=== PATIENT | female | born 1995 | race Caucasian/White ===

== ENCOUNTER → 2017-04-08 | Outpatient (CLI) | payer OTHER ==
[~2017-04-08] MED LIST: PRENATAL VITAMI1 TA9 PO; PRENATAL1 TA1 PO; PRILOSEC20 MG PO; VICODIN 5/500 505 MG PO; ZANTAC150 MG PO
== END | disposition home or self-care (01) ==
LOC: US 17:45
DX: Z97.5 Presence of (intrauterine) contraceptive device (principal)

== ENCOUNTER 2017-11-12 21:20 | Emergency (ER) | payer OTHER ==
[~2017-11-12] VITALS: Ht 154.9 cm; Wt 47.6 kg
[2017-11-12 21:40] VITALS: BP 134/70
[2017-11-12] MEDS ORDERED: CYCLOBENZAPRINE5 M3 PO (22:02)
[2017-11-12] MEDS ORDERED: Motrin,Rufen800 MG PO (22:02)
== END 2017-11-12 23:56 | disposition home or self-care (01) ==
LOC: ED 21:20
DX: S16.1XXA Strain of muscle, fascia and tendon at neck level, initial encounter (principal); M43.6 Torticollis; Z88.2 Allergy status to sulfonamides; Z79.899 Other long term (current) drug therapy; X58.XXXA Exposure to other specified factors, initial encounter; Y93.89 Activity, other specified; Y92.89 Other specified places as the place of occurrence of the external cause; Y99.8 Other external cause status

== ENCOUNTER 2018-09-17 15:33 | Emergency (ER) | payer OTHER ==
[~2018-09-17] VITALS: Ht 154.9 cm; Wt 49.9 kg
[~2018-09-17 15:33] MED LIST changes: +CYCLOBENZAPRINE5 M3 PO; +Motrin,Rufen800 MG PO
[2018-09-17 15:34] VITALS: BP 114/72
[2018-09-17 16:05] LABS: BILIRUBIN NEGATIVE (NEGATIVE); BLOOD TRACE-INTACT (NEGATIVE); CLARITY SL CLOUDY (CLEAR); COLOR YELLOW (YELLOW); GLUCOSE NEGATIVE (NEGATIVE); KETONE NEGATIVE (NEGATIVE); LEUKO ESTERASE NEGATIVE (NEGATIVE); NITRITE NEGATIVE (NEGATIVE); PH 5.5 (5.0-9.0); SPECIFIC GRAVITY >= 1.030 (1.005-1.030); UROBILINOGEN 0.2 E.U./dl (0.2-1.0)
[2018-09-17 16:06] LABS: BASO % 0.2 % (0.0-1.0); EOS # 0.2 10*3/uL (0.0-0.4); EOS % 2.7 % (1.0-4.0); HEMATOCRIT 42.5 % (37.0-47.0); HEMOGLOBIN 14.4 g/dl (12.0-16.0); LYMPH # 3.1 10*3/uL (1.3-4.4); LYMPH % 36.5 % (27.0-41.0); MEAN CELL VOLUME 82.5 fl (81.0-99.0); MEAN CORPUSCULAR HGB CONC 33.9 g/dl (33.0-37.0); MEAN PLATELET VOLUME 10.2 fl (9.6-12.3); MONO % 11.4 % (3.0-9.0); NEUT # 4.1 10*3/uL (2.3-7.9); NEUT % 48.8 % (47.0-73.0); PLATELET COUNT AUTOMATED 253 10*3/uL (130-400); RED BLOOD COUNT 5.15 10*6/uL (4.10-5.10); RED CELL DISTRI WIDTH 13.4 % (0-14.5); WHITE BLOOD COUNT 8.4 10*3/uL (4.8-10.8)
[2018-09-17 16:17] LABS: MUCOUS 1+
[2018-09-17 16:18] LABS: EPITHELIAL CELLS 31-40
[2018-09-17 16:19] LABS: BACTERIA 2+
[2018-09-17 16:20] LABS: ALBUMIN 4.1 gm/dl (3.1-4.5); ALKALINE PHOSPHATASE 84 U/L (45-117); BUN 10 mg/dl (7-24); CHLORIDE 109 mmol/L (98-107); CREATININE 0.78 mg/dL (0.55-1.02); LIPASE 151 U/L (73-393); POTASSIUM 3.7 mmol/L (3.5-5.1); SGOT/AST 9 IU/L (3-35); SGPT/ALT 24 U/L (12-78); SODIUM 142 mmol/L (136-145); TOTAL PROTEIN 7.9 gm/dL (6.4-8.2)
[2018-09-17] MEDS ORDERED: DICYCLOMINE HCL20 MG PO (18:29)
[2018-09-17] MEDS ORDERED: ZOFRAN ODT4 MG SL (18:29)
== END 2018-09-17 18:35 | disposition home or self-care (01) ==
LOC: ED 15:33
PROVIDERS: Physician Assistant
DX: R10.9 Unspecified abdominal pain (principal); R31.9 Hematuria, unspecified; R11.0 Nausea; R19.7 Diarrhea, unspecified; M54.5 Low back pain; R39.198 Other difficulties with micturition; Z88.2 Allergy status to sulfonamides; Z79.899 Other long term (current) drug therapy

== ENCOUNTER 2018-11-15 09:54 | Emergency (ER) | payer OTHER ==
[~2018-11-15] VITALS: Wt 49.9 kg
[~2018-11-15 09:54] MED LIST changes: +DICYCLOMINE HCL20 MG PO; +ZOFRAN ODT4 MG SL
[2018-11-15 09:55] VITALS: BP 112/48
[2018-11-15] MEDS ORDERED: NAPROSYN500 MG PO (14:13)
[2018-11-15] MEDS ORDERED: PENICILLIN VK500 MG PO (14:13)
== END 2018-11-15 14:41 | disposition home or self-care (01) ==
LOC: ED 09:54
DX: S03.42XA Sprain of jaw, left side, initial encounter (principal); K08.89 Other specified disorders of teeth and supporting structures; R59.0 Localized enlarged lymph nodes; Z88.2 Allergy status to sulfonamides; Z79.2 Long term (current) use of antibiotics; Z79.899 Other long term (current) drug therapy; X58.XXXA Exposure to other specified factors, initial encounter; Y93.89 Activity, other specified; Y92.89 Other specified places as the place of occurrence of the external cause; Y99.8 Other external cause status

== ENCOUNTER 2019-01-09 18:30 | Emergency (ER) | payer OTHER ==
[~2019-01-09 18:30] MED LIST changes: +NAPROSYN500 MG PO; +PENICILLIN VK500 MG PO
[2019-01-09 18:31] VITALS: BP 114/62
[2019-01-09] MEDS ORDERED: ONDANSETRON4 MG SL (19:16)
== END 2019-01-09 19:23 | disposition home or self-care (01) ==
LOC: ED 18:30
DX: R11.2 Nausea with vomiting, unspecified (principal); Z88.2 Allergy status to sulfonamides; Z79.899 Other long term (current) drug therapy; Z79.2 Long term (current) use of antibiotics

== ENCOUNTER → 2019-10-19 | Outpatient (CLI) | payer OTHER ==
[~2019-10-19] MED LIST changes: +ONDANSETRON4 MG SL
== END | disposition home or self-care (01) ==
LOC: RAD 15:41
DX: R07.9 Chest pain, unspecified (principal); R05 Cough; R06.02 Shortness of breath